=== PATIENT | male | born 1990 ===

== ENCOUNTER 2018-02-21 15:21 | Emergency (ER) | payer MEDICAID ==
--- NOTE | 2018-02-21 15:29 | ED PDOC ---
Arrival/HPI - General Historian: Patient - General Time Seen by Provider: 02/21/18 15:28 - History of Present Illness Narrative History of Present Illness (Text): 02/21/18 15:28 28 y/o male, no significant pmh, nkda, c/o rt. lower dental pain x 2 days with no fall or trauma. Pt. stated that he has been having rt. lower dental pain on and off for weeks, scheduled to see the oramaxillary facial/dental surgeon in 5 days for the dental procedure, no fever or chills, no difficulty swallowing, no chin swelling, no night sweat, no rash, no palpitation, no other medical or psychological complaints. (Ricci Dixon) Past Medical History - Provider Review Nursing Documentation Reviewed: Yes Family/Social History - Physician Review Nursing Documentation Reviewed: Yes Family/Social History: Unknown Family HX Allergies/Home Meds Allergies/Adverse Reactions: Allergies FISH Allergy (Verified 09/25/17 17:02) RASH Home Medications: Home Meds Medication Instructions Recorded Confirmed Buprenorphine Hydrochloride 8 mg SL DAILY 02/21/18 02/21/18 [Subutex] Gabapentin [Neurontin] 0 mg PO TID 02/21/18 02/21/18 buPROPion SR [Wellbutrin SR] 0 mg PO DAILY 02/21/18 02/21/18 Review of Systems - Review of Systems Constitutional: absent: Fatigue, Fevers Eyes: absent: Vision Changes ENT: Other (+dental pain). absent: Hearing Changes Respiratory: absent: SOB, Cough Cardiovascular: absent: Chest Pain Gastrointestinal: absent: Abdominal Pain, Diarrhea, Nausea, Vomiting Musculoskeletal: absent: Arthralgias, Back Pain Skin: absent: Rash, Pruritis, Skin Lesions Neurological: absent: Headache, Dizziness Psychiatric: absent: Anxiety, Depression, Suicidal Ideation Physical Exam Vital Signs Reviewed: Yes Temperature: Afebrile Pulse: Regular Respiratory Rate: Normal Appearance: Positive for: Well-Appearing, Non-Toxic Pain Distress: Moderate Mental Status: Positive for: Alert and Oriented X 3 - Systems Exam Head: Present: Atraumatic, Normocephalic Pupils: Present: PERRL Extroacular Muscles: Present: EOMI Conjunctiva: Present: Normal Ears: Present: Normal, NORMAL TM, Normal Canal. No: Erythema Mouth: Present: Moist Mucous Membranes. No: Normal Teeth (Visible multiple dental caries brown cracked and brown discolorations noted on the rt. lower dental region, no chin or tongue swelling. ) Pharnyx: Present: Normal. No: ERYTHEMA, EXUDATE, TONSILS ENLARGED, Muffled/ Hoarse Voice, Strider, Soft Palate/Uvular Edema Nose (External): Present: Atraumatic. No: Abrasion, Contusion, Laceration Nose (Internal): Present: Normal Inspection, No Active Bleeding. No: Rhinorrhea , Septal Hematoma, Epistaxis Neck: Present: Normal Range of Motion, Trachea Midline. No: Meningeal Signs, MIDLINE TENDERNESS, Paraspinal Tenderness, Lymphadenopathy Respiratory/Chest: Present: Clear to Auscultation, Good Air Exchange. No: Respiratory Distress, Accessory Muscle Use Cardiovascular: Present: Regular Rate and Rhythm, Normal S1, S2. No: Murmurs Abdomen: No: Tenderness, Distention, Peritoneal Signs Back: Present: Normal Inspection Upper Extremity: Present: Normal Inspection. No: Cyanosis, Edema Lower Extremity: Present: Normal Inspection. No: Edema Neurological: Present: GCS=15, CN II-XII Intact, Speech Normal Skin: Present: Warm, Dry, Normal Color. No: Rashes Psychiatric: Present: Alert, Oriented x 3, Normal Insight, Normal Concentration Vital Signs Temp Pulse Resp BP Pulse Ox 02/21/18 17:56 98.3 F 72 18 112/72 99 02/21/18 15:43 98.2 F 74 18 96/63 L 98 Medical Decision Making ED Course and Treatment: 02/21/18 15:59 -IV unasyn/toradol 02/21/18 17:44 -Pt. feels much better, eating and drinking well, request to be discharged home. -Discharge home with augmentin, motrin, pepcid, salt water gargling, follow up with your own pmd and dentist within 2 days, return to the ER for any new or worsening signs or symptoms. (Ricci Dixon) - Medication Orders Current Medication Orders: Discontinued Medications Sodium Chloride (Sodium Chloride 0.9%) 1,000 mls @ 999 mls/hr IV .Q1H1M STA Stop: 02/21/18 16:56 Last Admin: 02/21/18 16:35 Dose: 999 mls/hr eMAR Start Stop Document 02/21/18 16:35 HI (Rec: 02/21/18 16:35 [place] [id number]) Intravenous Solution Start Date 02/21/18 Start Time 16:35 Ampicillin Sodium/Sulbactam (Sodium 3 gm/ Sodium Chloride) 100 mls @ 100 mls/ hr IVPB STAT STA PRN Reason: Protocol Stop: 02/21/18 16:55 Last Admin: 02/21/18 16:33 Dose: 100 mls/hr eMAR Start Stop Document 02/21/18 16:33 HI (Rec: 02/21/18 16:34 [place] [id number]) Intravenous Solution Start Date 02/21/18 Start Time 16:34 Ketorolac Tromethamine (Toradol) 30 mg IVP STAT STA Stop: 02/21/18 15:57 Last Admin: 02/21/18 16:34 Dose: 30 mg MAR Pain Assessment Document 02/21/18 16:34 HI (Rec: 02/21/18 16:35 [place] [id number]) Pain Reassessment Is this a pain reassessment? No Sleep Is patient sleeping during reassessment? No Presence of Pain Presence of Pain Yes Location Pain Location Body Site Jaw Description Description Constant Intensity of Pain at present 6 Acceptable Level of Pain 0 IVP Administration Document 02/21/18 16:34 HI (Rec: 02/21/18 16:35 [place] [id number]) Charges for Administration # of IVP Administrations 1 - PA / STEWARD/STEWARDESS BANQUET / Resident Statement MD/DO has reviewed & agrees with the documentation as recorded. Disposition/Present on Arrival - Present on Arrival Any Indicators Present on Arrival: No History of DVT/PE: No History of Uncontrolled Diabetes: No Urinary Catheter: No History of Decub. Ulcer: No - Disposition Have Diagnosis and Disposition been Completed?: Yes Disposition Time: 17:45 Patient Plan: Discharge - Disposition Diagnosis: Dental caries, Pain, dental Disposition: HOME/ ROUTINE Condition: IMPROVED Additional Instructions: -Discharge home with augmentin, motrin, pepcid, salt water gargling, follow up with your own pmd and dentist within 2 days, return to the ER for any new or worsening signs or symptoms. Prescriptions: Amoxicillin/Clavulanate [Augmentin 875 MG-125 MG] 1 tab PO BID #20 tab Famotidine [Pepcid] 20 mg PO BID #20 tab Ibuprofen [Motrin Tab] 800 mg PO TID PRN #30 tab PRN Reason: Other Referrals: [facility] at [facility] [place] [Outside] - Follow up with primary Forms: WORK NOTE
[2018-02-21 15:48] VITALS: RESP 18
[2018-02-21] MEDS ORDERED: Sodium Chloride 0.9% 1,000 ML IV STA (15:56)
[2018-02-21 22:04] VITALS: BP 112/72; PULSE 72; TEMP 98.3; O2SAT 99
== END 2018-02-21 17:56 | disposition home or self-care (01) ==
LOC: ED 15:21 → MERGE 15:21 → ED 17:56
DX: K02.9 Dental caries, unspecified (principal)
CPT/HCPCS: 96374; 96375; 99283; J0295; J1885; J7030

== ENCOUNTER 2018-04-17 17:47 | Emergency (ER) | payer MEDICAID ==
[2018-04-17 17:47] VITALS: BMI 17.3
== END 2018-04-17 18:40 | disposition left against medical advice (07) ==
LOC: ED 17:47
DX: Z02.89 Encounter for other administrative examinations (principal); M79.673 Pain in unspecified foot